=== PATIENT | male | born 2000 | race Caucasian/White ===

== ENCOUNTER → 2018-01-18 09:36 | Outpatient (CLI) | payer MEDICAID, SELFPAY ==
--- NOTE | 2018-01-18 09:39 | US_ITS ---
US abdomen limited History:Nausea and vomiting after eating Ordering Physician:ROXY sTe Patient Age: 17 years Comparison:None Findings: Pancreas:Unremarkable. No obvious mass or abnormal fluid collection. No ductal dilatation Liver:No focal liver lesions demonstrated. Homogeneous echogenicity. No intrahepatic biliary ductal dilatation evident Right Kidney:Unremarkable. Normal size and echogenicity. No hydronephrosis Gallbladder:Stones are present in the gallbladder. No gallbladder wall thickening, pericholecystic fluid, or biliary dilatation is evident. Stones are present in the neck and fundus of the gallbladder Common bile duct is 3 mm. Impression: Cholelithiasis. Otherwise negative
== END ==
PROVIDERS: PCP Emergency Medicine; Visit Provider Physician Assistant
DX: R10.11 Right upper quadrant pain (principal)
CPT/HCPCS: 76705

== ENCOUNTER 2021-02-20 17:12 | Emergency (ER) | payer BC, SELFPAY ==
[2021-02-20 17:15] VITALS: BP 124/76; PULSE 80; RESP 20; TEMP 37; O2SAT 98; BMI 31.0
--- NOTE | 2021-02-20 17:41 | XR_ITS ---
PROCEDURE INFORMATION: Exam: XR Sternum Exam date and time: 02/20/2021 5:41 PM Age: 20 years old Clinical indication: Sternal or substernal pain; Patient HX: Patient feels pain and popping in sternum; No injury TECHNIQUE: Imaging protocol: XR sternum. Views: 2 or more views. Total images: 4 COMPARISON: ABDPELWO CT abdomen pelvis wo con 12/20/2017 5:12 AM FINDINGS: Bones/joints: No gross sternal fractures are identified radiographically. No blastic or lytic lesions. No gross retrosternal abnormalities. Visualized ribs appear intact. Lungs: Granulomatous calcifications in the precarinal distribution. Visualized lung flanagan are clear. Soft tissues: Soft tissues are unremarkable. IMPRESSION: No acute findings.
--- NOTE | 2021-02-20 18:24 | HMH.EDUTC ---
[facility] [place] Disposition Clinical Impression: Chest problem Disposition: Home, Self-Care Condition on Discharge: Good Instructions: Naproxen Additional Instructions: Do not pop your sternum Follow up with your Family Doctor for further evaluation and examination Take Naproxen as prescribed to help with pain and inflammation of sternal bones Return if needed Straight to ER if any life threatening symptoms or if pain returns Prescriptions: Naproxen [Naproxen 500mg tab] 500 mg PO BID PRN #20 tab PRN Reason: Moderate Pain Transmission Status: Received by [facility] Referrals: Natalia Zapien PA [Primary Care Provider] - As needed Time of Disposition: 18:42 Medical Decision Making - Jez Inquiry Pt receiving controlled substance: No Jez was queried for this patient: No Vital Signs: 02/20/21 17:15 02/20/21 18:52 Temperature 98.6 F 98.6 F Temperature Source Oral Pulse Rate 80 Pulse Rate [Left Brachial] 80 Respiratory Rate 20 20 Blood Pressure 124/76 Blood Pressure [Left Arm] 124/76 Blood Pressure Mean [Left Arm] 92 Blood Pressure Source [Left Arm] Automatic Cuff Blood Pressure Position [Left Arm] Sitting 02 Sat by Pulse Oximetry 98 Oxygen Delivery Method Room Air - Radiology Data #1 Image(s): Other (sternum ) Image Reviewed: Yes I have reviewed radiologist's interpretation IMPRESSION: No acute findings. [facility] [place] HPI - General Stated complaint: sore sternum Time Seen by Provider: 02/20/21 18:24 Mode of Arrival: Ambulatory Source of Information: Patient Limitations: No Limitations Description of Symptoms (Recalled from Triage Doc. by RN): PATIENT C/O SORE STERNUM X 6 MONTHS. STATES THAT WHEN HE LEANS BACK HIS STERNUM POPS HEENT Symptoms (Recalled from RN notes): No Resp Symptoms (Recalled from RN notes): No Skin Symptoms (Recalled from RN notes): No MS Symptoms (Recalled from RN notes): Yes Functional Status (Recalled from RN notes): WNL - History of Present Illness Provider Complaint: Patient states that his sternum will pop when he leans back and stretches States that it is not sore or doesnt hurt but feels like he needs to pop it at times due to feeling stiff States that the other night at work it popped loudly and they was concerned and told him he needed to come get it checked out - Related Data Previous Rx's Medication Instructions Recorded Naproxen [Naproxen 500mg tab] 500 mg PO BID PRN #20 tab 02/20/21 Allergies Allergy/AdvReac Type Severity Reaction Status Date / Time Influenza Virus Vaccines Allergy Intermediate Verified 09/22/18 17:10 [INFLUENZA VIRUS VACCINES] egg Allergy Verified 02/20/21 17:43 nut - unspecified Allergy Verified 02/20/21 17:43 - Worker's Comp Is this a Worker's Comp case?: No [facility] History - Hepatitis A Screen Drug use history?: No High risk sexual behaviors?: No History of sexually transmitted infection?: No Currently employed?: No Childcare worker?: No Do you have indoor plumbing?: Yes Do you have electricity?: Yes Attestation statement:: This patient has been screened for Hepatitis A risk factors. I have reviewed the patient's past medical history: Yes Medical History: Reports:: Anxiety Denies:: Cancer, Diabetes Mellitus Type 1, Diabetes Mellitus Type 2, MRSA Other Surgeries: Yes: Other Amputation: No Fractures: No Comment: eye, wisdom teeth - Social History Smoking Status: Current every day smoker Tobacco Type: cigarettes, e-cigarettes # Packs/Day (cigarettes): 1 Alcohol Intake: never Alcohol Intake Frequency:: holidays/special occasions only Substance Use Type: denies use Occupational Status: employed Housing: house Household Members: family - Psychiatric History Pschychiatric History:: Reports:: Anxiety Family Hx:: Unable to obtain ROS Obtained: Yes All systems reviewed & no additional complaints, Yes Systems reviewed as appropriate & no additional complaints - Con
[2021-02-20 18:52] VITALS: BP 124/76; PULSE 80; RESP 20; TEMP 37; O2SAT 98
== END 2021-02-20 18:55 | disposition home or self-care (01) ==
PROVIDERS: Emergency Provider Nurse Practitioner; PCP Physician Assistant
DX: R07.89 Other chest pain (principal); F41.9 Anxiety disorder, unspecified; F17.210 Nicotine dependence, cigarettes, uncomplicated; Z88.7 Allergy status to serum and vaccine
CPT/HCPCS: 71120; 99202; G0463

== ENCOUNTER 2021-07-26 11:25 | Emergency (ER) | payer BC, SELFPAY ==
[2021-07-26 11:48] VITALS: BP 136/83; PULSE 97; RESP 16; TEMP 37.1; O2SAT 98; BMI 31.3
--- NOTE | 2021-07-26 11:48 | XR_ITS ---
FINAL REPORT CLINICAL HISTORY: pain. radial sided wrist pain. pt shielded. FINDINGS: RIGHT WRIST Three views demonstrate no acute fracture or dislocation. The visualized joint spaces are normally aligned. The soft tissues are unremarkable. IMPRESSION: No acute bony abnormality. Reviewed, Interpreted and Dictated by Silviano Krishna III, MD Transcribed by Marcela Zepeda Authenticated by Silviano Krishna III, MD on 07/26/2021 12:46:[address] [facility]
--- NOTE | 2021-07-26 12:05 | HMH.EDUTC ---
[facility] [place] Clinical Impression: Wrist sprain Qualifiers: Encounter type: initial encounter Laterality: right Qualified Code(s): S63.501A - Unspecified sprain of right wrist, initial encounter Disposition: Home, Self-Care Condition on Discharge: Good Instructions: How To Perform RICE (Rest, Ice, Compress, Elevate) Additional Instructions: *RICE, Rest the extremity, Ice 15-20 minutes 3-4 times daily, Compress- wear the jasvir wrap as discussed as much as possible to help reduce swelling and pain, Elevate the extremity when at rest *Jasvir wrap/Velcro wrist splint is for support and help control swelling, use it except in the shower. Be sure that is not to tight but not to loose either *Elevate when resting *Ibuprofen every 6-8 hours as needed for pain an inflammation. If need something more can take Tylenol in between doses of Ibuprofen to help Immediately follow up with your family doctor for new or worsening of symptoms, or no noticeable improvement over the next 3-5 days Call back to the [facility] later today for the Radiology reading of your xray Referrals: Natalia Zapien PA [Primary Care Provider] - As needed Time of Disposition: 12:23 Medical Decision Making - Jez Inquiry Pt receiving controlled substance: No Jez was queried for this patient: No Vital Signs: 07/26/21 11:48 07/26/21 12:40 Temperature 98.7 F 98.7 F Temperature Source Oral Pulse Rate 97 H Pulse Rate [Left] 97 H Respiratory Rate 16 16 Blood Pressure 136/83 Blood Pressure [Right Arm] 136/83 Blood Pressure Mean [Right Arm] 100 02 Sat by Pulse Oximetry 98 - Radiology Data #1 Image(s): Wrist Image Reviewed: Yes I reviewed the patient's radiology image Preliminary Findings: No Fracture Seen [facility] [place] - General Stated complaint: AO 07/21/21 rt wrist injury Time Seen by Provider: 07/26/21 12:05 Mode of Arrival: Ambulatory Source of Information: Patient Limitations: No Limitations Description of Symptoms (Recalled from Triage Doc. by RN): pt was wrestling around with his brother in law on 07/21. when the pt went to hit him his R wrist bent back. pt has had pain ever since. HEENT Symptoms (Recalled from RN notes): No Resp Symptoms (Recalled from RN notes): No Skin Symptoms (Recalled from RN notes): No MS Symptoms (Recalled from RN notes): Yes Functional Status (Recalled from RN notes): wnl - History of Present Illness Provider Complaint: Patient states that he was horse playing with his brother in law on 07/21 and he went to punch him and his wrist bent and he felt a pop States that he has been having pain in his right wrist on and off ever since with certain movements Denies numbness denies loss of feeling - Related Data Previous Rx's Medication Instructions Recorded Naproxen [Naproxen 500mg tab] 500 mg PO BID PRN #20 tab 02/20/21 Allergies Allergy/AdvReac Type Severity Reaction Status Date / Time Influenza Virus Vaccines Allergy Intermediate Verified 09/22/18 17:10 [INFLUENZA VIRUS VACCINES] egg Allergy Verified 02/20/21 17:43 nut - unspecified Allergy Verified 02/20/21 17:43 - Worker's Comp Is this a Worker's Comp case?: No [facility] History - Hepatitis A Screen Drug use history?: No High risk sexual behaviors?: No History of sexually transmitted infection?: No Currently employed?: No Childcare worker?: No Do you have indoor plumbing?: Yes Do you have electricity?: Yes Attestation statement:: This patient has been screened for Hepatitis A risk factors. I have reviewed the patient's past medical history: Yes Medical History: Reports:: Anxiety Denies:: Cancer, Diabetes Mellitus Type 1, Diabetes Mellitus Type 2, MRSA Other Surgeries: Yes: Other Amputation: No Fractures: No Comment: eye, wisdom teeth - Social History Smoking Status: Current every day smoker Tobacco Type: cigarettes, e-cigarettes # Packs/Day (cigarettes): 1 Alcohol Intake: never Alcohol Intake Frequency:: holidays/special
[2021-07-26 12:40] VITALS: BP 136/83; PULSE 97; RESP 16; TEMP 37.1
== END 2021-07-26 12:44 | disposition home or self-care (01) ==
PROVIDERS: Emergency Provider Nurse Practitioner; PCP Physician Assistant
DX: S63.501A Unspecified sprain of right wrist, initial encounter (principal); X50.3XXA Overexertion from repetitive movements, initial encounter; Y92.019 Unspecified place in single-family (private) house as the place of occurrence of the external cause; F41.9 Anxiety disorder, unspecified; F17.210 Nicotine dependence, cigarettes, uncomplicated
CPT/HCPCS: 29125; 73110; 99212; G0463

== ENCOUNTER → 2022-08-06 08:28 | Outpatient (CLI) | payer BC, SELFPAY ==
--- NOTE | 2022-08-06 08:31 | US_ITS ---
FINAL REPORT CLINICAL HISTORY: RUQ pain, history of gallstones COMPARISON: none FINDINGS: Sonographic images of the right upper quadrant were obtained. The pancreas is partially obscured. There is mild fatty infiltration of the liver. There are multiple large gallstones in the gallbladder. There is no evidence of biliary ductal dilatation.The common duct measures 3 mm. Limited images of the right kidney are unremarkable. IMPRESSION: Fatty infiltration of the liver. Cholelithiasis. Reviewed, Interpreted and Dictated by Silviano Krishna III, MD Transcribed by Georgia Akbar Authenticated and [facility]
== END ==
PROVIDERS: PCP Physician Assistant; Visit Provider Nurse Practitioner Family
DX: R10.11 Right upper quadrant pain (principal)
CPT/HCPCS: 76705

== ENCOUNTER → 2022-09-27 17:03 | Outpatient (CLI) | payer BC, SELFPAY ==
[2022-09-27 17:42] LABS: Basophils % 0.3 % (0.1-2.0); Eosinophils # 0.3 K/mm3 (0.0-0.4); Eosinophils % 5.2 % (0.1-12.0); Lymphocytes # 1.5 K/mm3 (0.7-4.5); Lymphocytes % 27.2 % (10-50); Mean Corpuscular HGB Conc 32.6 g/dL (31.8-35.4); Mean Platelet Volume 9.7 fl (7.4-10.4); Monocytes # 0.4 K/mm3 (0.1-1.0); Monocytes % 7.4 % (1.7-9.3); Neutrophils # 3.2 K/mm3 (1.8-7.8); Platelet Count 168 K/mm3 (142-424); Red Blood Count 5.16 M/mm3 (4.60-6.20); Red Cell Distribution Width 13.1 % (11.5-17.5); White Blood Count 5.3 K/mm3 (4.8-10.8)
[2022-09-27 17:44] LABS: Chloride 103 mmol/L (98-107); Potassium 4.5 mmoL/L (3.5-5.1); Sodium 140 mmol/L (136-145)
[2022-09-27 17:46] LABS: Blood Urea Nitrogen 18 mg/dl (9-20); Estimated Glomerular Filt Rate 120 ml/min (>60); GFR (African American) 145 ML/MIN (>60)
[2022-09-27 17:47] LABS: Alanine Aminotransferase 64 U/L (12-78); Albumin Level 4.7 g/dl (3.5-5.0); Albumin/Globulin Ratio 1.3 (1.1-1.8); Alkaline Phosphatase 60 U/L (38-126); Anion Gap 16.5 mEq/L (5-15); Aspartate Amino Transferase 37 U/L (17-59); Bilirubin,Total 0.8 mg/dl (0.2-1.3); Calcium 9.3 mg/dl (8.4-10.2); Carbon Dioxide 25 mmol/L (22.0-30.0); Globulin 3.6 g/dL (1.3-3.2); Glucose 95 mg/dl (74-100); Total Protein,Serum 8.3 g/dl (6.3-8.2)
== END ==
PROVIDERS: PCP Physician Assistant; Visit Provider Surgery
DX: Z01.812 Encounter for preprocedural laboratory examination (principal); K80.20 Calculus of gallbladder without cholecystitis without obstruction
CPT/HCPCS: 80053; 85025

== ENCOUNTER 2022-10-06 10:12 | Day surgery (SDC) | payer BC, SELFPAY ==
[2022-10-06] VITALS (15 sets, daily range): BP systolic 98–155; BP diastolic 55–86; PULSE 65–110; RESP 16–20; TEMP 30.7–43; O2SAT 91–97; BMI 32.3
--- NOTE | 2022-10-06 12:49 | EXP.OP.NOTE ---
Date of procedure: 10/06/22 Pre-op Diagnosis:: Symptomatic gallstones Post-op Diagnosis:: Same Procedure performed:: Laparoscopic cholecystectomy Surgeon:: Silviano Brown MD SUBJECT SCIENTIFIC RESEARCH:: Other Anesthesia: GETA Estimated blood loss (mL): 20 Clinical Note:: Patient is a pleasant 21-year-old.? Patient had been seen by his primary care provider on 07/30/2022 after he had onset of pain in his right upper quadrant and epigastric area that day.? This persisted for about 2 hours.? It was significant but dull and sharp.? He does state that he had a previous diagnosis of gallstones and had a gallbladder attack about a year ago.? He underwent gallbladder ultrasound on 08/06/2022 which revealed fatty infiltration of the liver and multiple large gallstones.? Common bile duct was normal.? Patient actually states that he was diagnosed about 5 years ago with gallstones.? However, his symptoms have been very sporadic and rare. I had actually seen him years ago for symptoms of nausea. He had an ultrasound done in January 2018 which revealed gallstones. I felt that given the patient's findings on ultrasound with several episodes of biliary colic with his young age that cholecystectomy should be considered.? He does wish to proceed with this.? Nature and details of the proposed procedure along with associated risks and expected outcome were explained to him.? Plan for laparoscopic possibly open cholecystectomy. Operative findings:: He had mild fatty infiltration of the liver. He had a distended gallbladder with 2 moderately large gallstones. Operative note:: Patient was taken to the operating room. He was given preoperative intravenous antibiotics. In the operating room he was placed in a supine position. General anesthesia was induced via endotracheal tube. Abdomen was prepped and draped in the standard surgical fashion. Subumbilical skin incision was made and while performing abdominal wall lift Veress needle was inserted. CO2 pneumoperitoneum was achieved to 15 mmHg. 11 mm optical trocar was inserted at the umbilicus. Intraperitoneal contents were visualized. He was positioned in reverse Trendelenburg and left side down. A couple of 5 mm trocars were inserted in the right upper abdomen. 10 mm trocar was inserted in the epigastrium. Gallbladder was identified and grasped retracted anteriorly and superiorly over the dome of the liver. Gallbladder was distended. Infundibulum of the gallbladder was retracted anterior laterally. Blunt dissection was carried out at the neck of the gallbladder bluntly incising the visceral peritoneum. The cystic duct was clearly identified and isolated. It was multiply clipped and sharply divided. Cystic artery was carefully coagulated with LAUREN ultrasonic robotic dajuan and divided. Gallbladder was dissected free from the liver in a retrograde fashion using LAUREN ultrasonic harmonic dajuan. Gallbladder was placed within an Endo Catch retrieval device and attempt was made at removal from the umbilical trocar site. Attempt was made to extend the fascial incision for delivery. The gallbladder within the Endo Catch retrieval bag was placed within another Endo Catch retrieval bag and removed from the umbilical trocar site after some extension of the fascial and skin incision for delivery as there were a couple of moderately large stones in the distended gallbladder. Gallbladder fossa was inspected for hemostasis. Limited irrigation was performed of the perihepatic space. Trocars were then removed as CO2 pneumoperitoneum was evacuated. Fascia at the umbilicus was closed with several interrupted 0 Vicryl sutures. 0 Vicryl suture was placed in the epigastric trocar site in the anterior fascia. Local anesthetic was infiltrated. Skin incisions were closed with 4-0 Monocryl in a subcuticular fashion. Dermabond and dressings were applied. Condition: stable Disposition: PACU Complications:: None immediately apparent
--- NOTE | 2022-10-06 13:12 | EXP.ANES.I ---
[facility] Anesthesia Record Part I Anesthesia Record I Intake, IV Amount: 1,200 Estimated blood loss (mL): 10 Urine output (mL): 0 Blood Products used (#): none Blood Pressure: 98/55 SaO2: 94 Pulse Rate: 110 Respiratory Rate: 20 Temperature: 87.3 F Patient is:: Drowsy and Stable Stable to PACU at:: 13:05
--- NOTE | 2022-10-06 13:50 | SUR.PHASEI ---
1345- detailed report olimpia camposrn in post op. Pt left in stable condition with all dressings cdi and vss
--- NOTE | 2022-10-07 08:22 | P.PNANES_ITS ---
[facility] Anesthesia Record Part II Anesthesia Record Part II Discharge Time: 13:35 Destination: [facility] PACU nurse assessment reviewed?: Yes Patient Condition:: Good Anesthesia Complications:: None Swallowing reflex intact?: Yes Cyanosis?: No Blood Pressure: 133/74 Pulse Rate: 72 Temperature: 97.3 F Mental Status: Alert & Oriented Pain level:: 6 Nausea and/or vomitting:: None Intake, IV Amount: 1,000
[2022-10-07 08:23] VITALS: BP 133/74; PULSE 72; TEMP 36.3
== END 2022-10-06 14:40 | disposition home or self-care (01) ==
PROVIDERS: PCP Physician Assistant; Visit Provider Surgery
PROC: 0FT44ZZ Resection of Gallbladder, Percutaneous Endoscopic Approach (ICD-10-PCS; CPT 47562; principal; 2022-10-06 11:45)
DX: K80.10 Calculus of gallbladder with chronic cholecystitis without obstruction (principal); K82.8 Other specified diseases of gallbladder
CPT/HCPCS: 47562; 96374; J2405; J2710

== ENCOUNTER 2024-04-28 17:37 | Emergency (ER) | payer BC, SELFPAY ==
[2024-04-28 17:45] VITALS: BP 131/91; PULSE 93; RESP 17; TEMP 36.8; O2SAT 99; BMI 34.1
--- NOTE | 2024-04-28 17:54 | ED_ITS ---
Discharge Plan Disposition Patient Disposition: Home, Self-Care Condition: Good Prescriptions Prescriptions: No Action doxycycline hyclate 100 mg capsule 100 mg PO BID Qty: 20 0RF Referrals Follow up/Referrals: Raymond Connors MD [Primary Care Provider] - See instructions Activity Restrictions/Add. Instructions Additional Instructions/Restrictions: Follow up with your Family Doctor as discussed Stop the Doxycycline Follow up with Eye Doctor as soon as possible for eye exam and testing Straight to ER if any life threatening symptoms Clinical Impressions Clinical Impression: Eye problem Print Language Print Language: Kazakh Discharge ED Provider: Chey Ugarte [facility] [place] HPI General Stated complaint: blurry vision,pressure in eyes, headache Mode of Arrival: Ambulatory Source of Information: Patient Limitations: No Limitations Time Seen by Provider: 04/28/24 17:54 Description of Symptoms (Recalled from Triage Doc. by RN): PATIENT C/O PAIN IN EYES AND BLURRY VISION X 2 DAYS. HE STATES HE WAS ADVISED TO BE SEEN FOR POSSIBLE SIDE EFFECT OF PRESCRIBED MEDICATION HEENT Symptoms (Recalled from RN notes): Yes Resp Symptoms (Recalled from RN notes): No Skin Symptoms (Recalled from RN notes): No MS Symptoms (Recalled from RN notes): No Functional Status (Recalled from RN notes): WNL History of Present Illness Provider Complaint: Patient states that his PCP recently prescribed him Doxycycline States he has been taking it and yesterday he started with a mild headache and feeling like he was having pressure behind his eyes and had some blurry vision for a brief second but then the blurry vision cleared and the headache improved States today he has not had any blurry vision or headache but still feels like he has some pressure behind his eyes and he googled the side effects of Doxy and got worried and came in just to get checked before stopping taking the medication Denies any other symptoms Related Data Previous Rx's ?Medication ?Instructions ?Recorded doxycycline hyclate 100 mg capsule 100 mg PO BID #20 caps 04/26/24 Allergies Allergy/AdvReac Type Severity Reaction Status Date / Time Influenza Virus Vaccines Allergy Intermediate Verified 04/26/24 14:37 (INFLUENZA VIRUS VACCINES) peanut Allergy Intermediate Rash Verified 04/26/24 14:37 egg Allergy Verified 04/26/24 14:37 Worker's Comp Is this a Worker's Comp case?: No [facility] Disclaimer: The information contained in this section may have been updated after the patient was seen, as this information can be updated by other users. Medical History (Updated 04/28/24 @ 18:21 by Chey Ugarte APRN) Lymphadenopathy, axillary Anxiety Asthma Gallstones Surgical History History of laparoscopic cholecystectomy History of wisdom tooth extraction Family History Other Family history of brain aneurysm Social History Smoking Status: Current every day smoker tobacco type: cigarettes packs per day: 1 and e-cigarettes alcohol intake: current alcohol intake frequency: holidays/special occasions only substance use type: denies use current occupational status: employed Travel in the last 8 weeks: None household members: family housing: house ROS Obtained: Yes All systems reviewed & no additional complaints except as documented and Yes Systems reviewed as appropriate & no additional complaints except as documented Constitutional Constitutional: Reports system reviewed and no additional complaints, except as documented, Reports as per HPI and Reports headache(s) (a little yesterday in the back of his head that improved) Eyes Eyes: Reports system reviewed and no additional complaints, except as documented, Reports as per HPI, Reports blurry vision (yesterday for a brief moment then it cleared) and Reports other (pressure like feeling behind eyes ) ENT Ears, Nose, Mouth, and Throat: Reports system reviewed and no additional complaints, except as documented, Reports as per HPI and Reports headache(s) (a little yesterday in the back of his head that improved) Cardiovascular Cardiovascular: Reports system reviewed and no additional complaints, except as documented and Reports as per HPI Respiratory Respiratory: Reports system reviewed and no additional complaints, except as documented and Reports as per HPI Gastrointestinal Gastrointestingal: Reports system reviewed and no additional complaints, except as documented and as per HPI Genitourinary Male Genitourinary: Reports system reviewed and no additional complaints, except as documented and Reports as per HPI Neurologic Neurologic: Reports headache(s) (a little yesterday in the back of his head that improved) Physical Exam General General appearance: alert and in no apparent distress Eye Eye exam: Present normal appearance, PERRL and EOMI; Absent discharge, nystagmus, periorbital swelling or periorbital tenderness Respiratory Respiratory exam: Present normal lung sounds bilaterally; Absent respiratory distress or wheezes Cardiovascular Cardiovascular exam: Present regular rate, normal rhythm and normal heart sounds Abdominal Exam Abdominal exam: Present soft and normal bowel sounds; Absent distention or tenderness Neurological Exam Neurological exam: Present alert, oriented X3 and normal gait Medical Decision Making Medical Records Screening: Per USPSTF and CDC recommendations, given the prevalence of disease in our region, it is our hospital?s policy to screen for HIV and viral Hepatitis for all patients aged 18 and over and those with ongoing risk factors. Jez Inquiry Pt receiving controlled substance: No Jez was queried for this patient: No Vital Signs: 04/28/24 17:45 Temperature 98.3 F Temperature Source Oral Pulse Rate [Left Brachial] 93 H Respiratory Rate 17 Blood Pressure [Left Arm] 131/91 H Blood Pressure Mean [Left Arm] 104 Blood Pressure Source [Left Arm] Automatic Cuff Blood Pressure Position [Left Arm] Sitting 02 Sat by Pulse Oximetry 99 Oxygen Delivery Method Room Air Medical Decision Narrative: Patient advised he had called someone and not sure who that told him to get checked possible side effects of medication, spoke with Dr Rivera that was covering call for his PCP and informed him of patient and complaints and patient did not speak with him, Discussed that patient Alert and oriented and patient no distress states not having any blurry vision or headache at this time just feels like he has some pressure behind his eyes discussed with Patient about transfer to the ED for further work up and evaluation and patient declined patient informed not to take any more of the Doxy and follow up with PCP and Eye exam in the am and see if symptoms improve and given strict return precautions to the ED if symptoms worsen and patient agreed
[2024-04-28 18:20] VITALS: BP 131/91; PULSE 93; RESP 17; TEMP 36.8; O2SAT 99
== END 2024-04-28 18:24 | disposition home or self-care (01) ==
PROVIDERS: Emergency Provider Nurse Practitioner; PCP Family Medicine
DX: R51.9 Headache, unspecified (principal); H53.8 Other visual disturbances
CPT/HCPCS: 99213; G0381

== ENCOUNTER 2024-04-29 15:09 | Outpatient (CLI) | payer BC, SELFPAY ==
--- NOTE | 2024-04-29 15:10 | US_ITS ---
FINAL REPORT CLINICAL HISTORY: lymphadenopathy FINDINGS: ULTRASOUND SOFT TISSUES OF THE RIGHT AXILLA TECHNIQUE: Limited sonographic imaging of the soft tissues of the right axilla were obtained. FINDINGS: There are lobular, low-attenuation regions in the right axilla. The largest measures up to 3.1 x 2.4 cm. These are favored to represent enlarged lymph nodes. Smaller lesions measure up to 1.4 cm. No fluid collection is identified. IMPRESSION: Low-attenuation regions in the right axilla measure up to 3.1 x 2.4 cm. These are favored to represent enlarged lymph nodes. Consider chest CT with IV contrast for further evaluation. Reviewed, Interpreted and Dictated by Marcelino Marlow MD Transcribed by Loretta Chaparro Authenticated and [facility]
== END 2024-04-29 23:59 | disposition home or self-care (01) ==
LOC: RAD 15:10
PROVIDERS: PCP Family Medicine; Visit Provider Family Medicine
DX: R59.0 Localized enlarged lymph nodes (principal)
CPT/HCPCS: 76642

== ENCOUNTER 2025-01-28 18:44 | Emergency (ER) | payer BC, SELFPAY ==
[2025-01-28] VITALS (14 sets, daily range): BP systolic 123–179; BP diastolic 68–103; PULSE 81–101; RESP 17–18; TEMP 36.8; O2SAT 96–100; BMI 35.4
--- NOTE | 2025-01-28 19:01 | ED_ITS ---
<Statement entered by Robert Willson DO - 01/28/25 23:29> I was consulted by the RITIKA, and we discussed the complexity of problems being addressed. I approved the treatment and management plan for this patient's care in the emergency department, thus performing a substantive portion of the medical decision making. I independently evaluated this patient and obtained collateral history. Patient tells me that he developed nausea with vomiting and diarrhea today. He states his primary reason for coming here is because with 1 episode of vomiting he had a scant amount of blood present in the vomit. I did not feel that he necessitated any abdominal imaging because he does not have any abdominal tenderness on exam. However, we did decide to proceed with a chest x-ray to evaluate for potential pneumomediastinum/Boerhaave syndrome. This x-ray was personally interpreted by me and demonstrates no free mediastinal air or air in the subcutaneous tissues that would indicate underlying pneumomediastinum. We also work the patient up with hematologic labs. His labs show a transaminitis with an AST of 98 and an ALT of 217. His bilirubin is mildly elevated at 1.4. The patient has a history of cholecystectomy so this is very unlikely to be secondary to gallstones. We added on a serum alcohol level and acetaminophen level which were both less than 10. CK was normal so this is unlikely to be related to muscle breakdown. My suspicion is that this patient is likely experiencing a viral syndrome that is causing a viral transaminitis. I have had a very long discussion with the patient at the bedside about the importance of following up within 1 week to have repeat LFTs performed. He acknowledges understanding of this. We have also given return precautions in the event that he experiences abdominal pain or any other new or worsening symptoms. At this time all questions were answered and all parties were agreeable with the decision to discharge home. Robert Willson DO Discharge Plan Disposition Patient Disposition: Home, Self-Care Prescriptions Prescriptions: No Action sulfamethoxazole-trimethoprim [Bactrim DS] 800-160 mg tablet 1 tab PO BID Qty: 14 0RF Referrals Follow up/Referrals: Raymond Connors MD [Primary Care Provider, Family Practice] - See instructions Activity Restrictions/Add. Instructions Additional Instructions/Restrictions: Today you were evaluated in the emergency department. Your lab workup revealed elevated AST and ALT. As we discussed, please have these labs redrawn in 1 week. Please check your portal ritika for your hepatitis panel results tomorrow. Please call the ED if you have any additional questions. Follow-up with your PCP next week. Return to the ED for any worsening of condition. Clinical Impressions Clinical Impression: Nausea & vomiting Qualifiers: Vomiting type: unspecified Qualified Code(s): R11.2 - Nausea with vomiting, unspecified Instructions Patient Instructions: DI for Acute Abdominal Pain Print Language Print Language: Luxembour[place] Discharge ED Provider: Robert Willson Adult HPI General Chief complaint: Abdominal Pain Stated complaint: vomiting,abdominal pain , runny stool Time Seen by Provider: 01/28/25 18:52 Mode of Arrival: Ambulatory Source of Information: Patient and Spouse Description of Symptoms (Recalled from ER Triage Doc. by RN): giuliano presents to the ED for vomiting blood and diarrhea. patient stated that the blood in his emesis was dark red, and he assumes it blood . patient states that the disrrhea isnt really abnormal for him since they took his gallbladder out. History of Present Illness HPI narrative: patient is a 24-year-old male with no significant PMHx who presents to the ED for complaints of vomiting and diarrhea that occurred this morning at 1000. Patient states his last meal was at 0600, then he went to sleep, woke up with vomiting and diarrhea. Patient states that the last thing he ate was a steak, jalapeno poppers and chicken bites. Related Data Previous Rx's ?Medication ?Instructions ?Recorded sulfamethoxazole 800 1 tab PO BID #14 tabs mg-trimethoprim 160 mg tablet (Bactrim DS) Allergies Allergy/AdvReac Type Severity Reaction Status Date / Time Influenza Virus Vaccines Allergy Intermediate Verified 05/03/24 15:05 (INFLUENZA VIRUS VACCINES) peanut Allergy Intermediate Rash Verified 05/03/24 15:05 egg Allergy Verified 05/03/24 15:05 [facility] Disclaimer: The information contained in this section may have been updated after the patient was seen, as this information can be updated by other users. Medical History Lymphadenopathy, axillary Anxiety Asthma Gallstones Surgical History History of laparoscopic cholecystectomy History of wisdom tooth extraction Family History Other Family history of brain aneurysm Social History Smoking Status: Never smoker alcohol intake: current alcohol intake frequency: holidays/special occasions only substance use type: denies use current occupational status: employed Travel in the last 8 weeks?: None household members: family housing: house Have you lived/traveled outside US in past 30 days?: No Contact w/someone who lives/traveled outside US past 30 days?: No Exposure to someone with infectious disease in past 14 days?: No Do you have a fever (greater than 100.4 F or 38 C)?: No Have you tested positive for COVID-19?: No Exposed to someone with COVID-19 in past 14 days?: No Do you have a sore throat?: No Do you have a cough?: No Do you have any weakness?: No Do you have any diarrhea?: No Are you experiencing any unusual bleeding?: No Do you have any muscle aches/pain?: No Do you have any abdominal pain?: No Are you experiencing loss of taste or smell?: No Other Medical History Have you received the Flu Vaccine for this season: No Have you received the Pneumonia Vaccine: No ROS Obtained: Yes Systems reviewed as appropriate & no additional complaints except as documented Physical Exam General General appearance: alert and in no apparent distress Head Head exam: atraumatic Eye Eye exam: Present PERRL and EOMI Neck Neck exam: Present full ROM Respiratory Respiratory exam: Present normal lung sounds bilaterally Cardiovascular Cardiovascular exam: Present regular rate Extremities Exam Extremities exam: Present full ROM Back Exam Back exam: Present full ROM Neurological Exam Neurological exam: Present alert and oriented X3 Skin Skin exam: Present warm and dry Medical Decision Making Medical Records Screening: Per USPSTF and CDC recommendations, given the prevalence of disease in our region, it is our hospital?s policy to screen for HIV and viral Hepatitis for all patients aged 18 and over and those with ongoing risk factors. Jez Inquiry Pt receiving controlled substance: No Vital Signs: 01/28/25 18:46 01/28/25 19:10 01/28/25 19:11 Temperature 98.2 F Temperature Source Temporal Artery Scan Pulse Rate 99 H 101 H Pulse Rate [Right Radial] 98 H Respiratory Rate 18 Blood Pressure Blood Pressure [Right Arm] 179/103 H Blood Pressure Mean Blood Pressure Mean [Right Arm] 128 Blood Pressure Source [Right Arm] Automatic Cuff Blood Pressure Position [Right Arm] Sitting 02 Sat by Pulse Oximetry 100 97 97 Oxygen Delivery Method Room Air 01/28/25 19:12 01/28/25 19:12 01/28/25 19:15 Temperature Temperature Source Pulse Rate 98 H 94 H Pulse Rate [Right Radial] Respiratory Rate Blood Pressure 144/86 H Blood Pressure [Right Arm] Blood Pressure Mean 105 Blood Pressure Mean [Right Arm] Blood Pressure Source [Right Arm] Blood Pressure Position [Right Arm] 02 Sat by Pulse Oximetry 96 98 Oxygen Delivery Method 01/28/25 19:30 01/28/25 19:30 01/28/25 19:45 Temperature Temperature Source Pulse Rate 97 H 93 H Pulse Rate [Right Radial] Respiratory Rate Blood Pressure 140/85 Blood Pressure [Right Arm] Blood Pressure Mean 113 Blood Pressure Mean [Right Arm] Blood Pressure Source [Right Arm] Blood Pressure Position [Right Arm] 02 Sat by Pulse Oximetry 97 97 Oxygen Delivery Method 01/28/25 20:00 01/28/25 20:00 01/28/25 20:15 Temperature Temperature Source Pulse Rate 87 88 Pulse Rate [Right Radial] Respiratory Rate Blood Pressure 130/80 Blood Pressure [Right Arm] Blood Pressure Mean 96 Blood Pressure Mean [Right Arm] Blood Pressure Source [Right Arm] Blood Pressure Position [Right Arm] 02 Sat by Pulse Oximetry 98 97 Oxygen Delivery Method 01/28/25 20:30 01/28/25 20:30 01/28/25 20:45 Temperature Temperature Source Pulse Rate 82 82 Pulse Rate [Right Radial] Respiratory Rate Blood Pressure 123/68 Blood Pressure [Right Arm] Blood Pressure Mean 86 Blood Pressure Mean [Right Arm] Blood Pressure Source [Right Arm] Blood Pressure Position [Right Arm] 02 Sat by Pulse Oximetry 98 97 Oxygen Delivery Method 01/28/25 20:52 01/28/25 21:01 Temperature Temperature Source Pulse Rate 81 Pulse Rate [Right Radial] Respiratory Rate Blood Pressure 137/81 Blood Pressure [Right Arm] Blood Pressure Mean 93 Blood Pressure Mean [Right Arm] Blood Pressure Source [Right Arm] Blood Pressure Position [Right Arm] 02 Sat by Pulse Oximetry 97 Oxygen Delivery Method Lab Data Lab Results 01/28/25 18:57: WBC 7.4, RBC 5.12, Hgb 15.4, Hct 45.2, MCV 88.3, MCH 30.1, MCHC 34.1, RDW 12.7, Plt Count 212, MPV 11.7 H, Neut % (Auto) 65.0, Lymph % (Auto) 18.6, Saunders % (Auto) 14.1 H, Eos % (Auto) 1.8, Baso % (Auto) 0.4, Neut # (Auto) 4.8, Lymph # (Auto) 1.4, Saunders # (Auto) 1.0, Eos # (Auto) 0.1, Baso # (Auto) 0.0, Sodium 140, Potassium 4.0, Chloride 102, Carbon Dioxide 25, Anion Gap 17.0 H, BUN 17, Creatinine 0.80, Estimated Creat Clear 215, Estimated GFR 117, Est GFR ( Amer) 141, Glucose 110 H, Calcium 9.4, Total Bilirubin 1.4 H, AST 98 H, ALT 217 H, Alkaline Phosphatase 83, Total Creatine Kinase 130, Total Protein 7.8, Albumin 4.8, Globulin 3.0, Albumin/Globulin Ratio 1.6, Acetaminophen < 10 L , Plasma/Serum Alcohol < 10 01/28/25 18:57 01/28/25 18:57 Orders (Tests/Meds): ED MEDICATIONS Discontinued Medications Generic Name Dose Route Start Last Admin Trade Name Freq PRN Reason Stop Dose Admin Lactated Ringer's 1,000 mls @ 999 mls/hr 01/28/25 19:01 01/28/25 20:06 Lactated Ringer's 1000 Ml Bag IV 01/28/25 20:01 Infused .Q1H1M ONE Infusion ORDERS Category Date Time Status CXR --portable [XR chest portable] Stat Exams 01/28/25 19:11 Taken Acetaminophen Stat Lab 01/28/25 18:57 Completed CBC w/Auto Diff [Complete Blood Count Auto Diff] Stat Lab 01/28/25 18:57 Completed CK [Creatine Kinase] Stat Lab 01/28/25 18:57 Completed CMP [Comprehensive Metabolic Panel] Stat Lab 01/28/25 18:57 Completed Ethanol [Ethyl Alcohol] Stat Lab 01/28/25 18:57 Completed Hepatitis Panel Stat Lab 01/28/25 18:57 Received Medical Decision Narrative: In summary, patient is a 24-year-old male with no significant PMHx who presents to the ED for complaints of vomiting and diarrhea that occurred this morning at 1000. Patient states his last meal was at 0600, then he went to sleep, woke up with vomiting and diarrhea. Patient states that the last thing he ate was a steak, jalapeno poppers and chicken bites. He has not been exposed to any GI illness that he is aware of. He states that the last episode of vomiting had a small amount of bright red blood mixed in. He has not had any issues since this morning, no additional blood in stool. He has not taken any medication prior to arrival. History of cholecystectomy. Does not have any additional complaints. Denies fever, chills, headache, visual disturbance, chest pain, shortness of breath, dysuria, constipation, back pain. Differential diagnoses include gastroenteritis, GI bleed, electrolyte abnormality, dehydration, among others. Upon initial evaluation patient is alert, oriented and cooperative. He is stable, afebrile. His abdomen is soft and nontender. Discussed with patient we will obtain labs and administer IV fluids. He denies wanting anything for nausea or pain at this time. CBC unremarkable for any leukocytosis, stable H&H. CMP remarkable for anion gap 17, glucose 110, total bili 1.4, AST 98, ALT 217. Adding on hepatitis panel, updated patient. He has a portal ritika and will check these results tomorrow. Attending reviewed the chest x-ray, no acute changes noted. Discussed with patient to return to the ED for any worsening of condition. We discussed that he will need to follow-up in 1 week to have his AST and ALT rechecked. He was advised to call the ED if he has any questions about his hepatitis panel results tomorrow. Advised to increase fluid intake. He was hemodynamically stable and ambulatory upon discharge without difficulty. Critical Care Critical Care Time Critical Care Time: No
[2025-01-28] MEDS: LACTATED RINGERS 1000ML 1,000 ML 999 ML IV (19:06)
[2025-01-28 19:08] LABS: Hematocrit 45.2 % (42.0-52.0); Hemoglobin 15.4 g/dL (14.1-18.0); Immature Granulocytes % 0.1 %; Mean Corpuscular HGB Conc 34.1 g/dL (31.8-35.4); Mean Corpuscular Hemoglobin 30.1 pg (27.0-31.2); Mean Corpuscular Volume 88.3 fl (80-94); Nucleated Red Blood Cells % 0 %; Platelet Count 212 K/mm3 (142-424); Red Blood Count 5.12 M/mm3 (4.60-6.20); Red Cell Distribution Width-SD 41.4 fL; White Blood Count 7.4 K/mm3 (4.8-10.8)
--- OUTSIDE RECORDS SUMMARY | 2025-01-28 19:10 | XMS_ITS | Clinical Summary ---
Author Organization Healthcare Address [address] [place] [address] Care Team Providers Care Machine Rigger Name Role Phone Natalia Zapien Primary Care Provider [phone] Social History Tobacco Use Types Packs/Day Years Used Date Smoking Tobacco: Every Day Alcohol Use Standard Drinks/Week Comments Yes 0 (1 standard drink = 0.6 oz pur e alcohol) Sex and Gender Information Value Date Recorded Sex Assigned at Not on file Legal Sex Male 7:09 PM EDT Gender Identity Not on file Sexual Orientation Not on file Plan of Treatment Not on file Care Teams Machine Rigger Relationship Specialty Start Date End Date Natalia Zapien PA [address] [place] [address] PCP - General 08/31/20
--- NOTE | 2025-01-28 19:11 | XR_ITS ---
PROCEDURE INFORMATION: Exam: XR Chest Exam date and time: 01/28/2025 7:51 PM Age: 24 years old Clinical indication: Other: Cp SOA TECHNIQUE: Imaging protocol: Radiologic exam of the chest. Views: 1 view. COMPARISON: CR XR STERNUM MIN 2V 02/20/2021 5:45 PM FINDINGS: Lungs: Unremarkable. No consolidation. Pleural spaces: Unremarkable. No pleural effusion. No pneumothorax. Heart/Mediastinum: Unremarkable. No cardiomegaly. Bones/joints: Unremarkable. IMPRESSION: No acute findings.
[2025-01-28 19:20] LABS: Alanine Aminotransferase 217 U/L (12-78); Albumin Level 4.8 g/dl (3.5-5.0); Albumin/Globulin Ratio 1.6 (1.1-1.8); Alkaline Phosphatase 83 U/L (38-126); Anion Gap 17.0 mEq/L (5-15); Aspartate Amino Transferase 98 U/L (17-59); Bilirubin,Total 1.4 mg/dl (0.2-1.3); Blood Urea Nitrogen 17 mg/dl (9-20); Calcium 9.4 mg/dl (8.4-10.2); Carbon Dioxide 25 mmol/L (22.0-30.0); Chloride 102 mmol/L (98-107); Creatinine Clearance Estimated 215 mL/min (50-200); Creatinine,Serum 0.80 mg/dl (0.66-1.25); Estimated Glomerular Filt Rate 117 ml/min (>60); GFR (African American) 141 ML/MIN (>60); Globulin 3.0 g/dL (1.3-3.2); Glucose 110 mg/dl (74-100); Potassium 4.0 mmoL/L (3.5-5.1); Sodium 140 mmol/L (136-145); Total Protein,Serum 7.8 g/dl (6.3-8.2)
[2025-01-28 20:19] LABS: Creatine Kinase 130 U/L (55-170)
[2025-01-28 20:20] LABS: Acetaminophen < 10 ug/ml (10-30)
== END 2025-01-28 21:09 | disposition home or self-care (01) ==
PROVIDERS: Nurse Practitioner; Emergency Provider Student in an Organized Health Care Education/Training Program; PCP Family Medicine
DX: R11.2 Nausea with vomiting, unspecified (principal)
CPT/HCPCS: 71045; 80053; 80074; 80320; 80329; 82550; 85025; 96360; 99284; 99285; J7120

== ENCOUNTER 2025-02-02 11:35 | Outpatient (CLI) | payer BC, SELFPAY ==
[2025-02-02 17:49] LABS: Alanine Aminotransferase 135 U/L (12-78); Albumin Level 4.6 g/dl (3.5-5.0); Albumin/Globulin Ratio 1.6 (1.1-1.8); Alkaline Phosphatase 77 U/L (38-126); Anion Gap 17.5 mEq/L (5-15); Aspartate Amino Transferase 42 U/L (17-59); Bilirubin,Total 0.5 mg/dl (0.2-1.3); Blood Urea Nitrogen 22 mg/dl (9-20); Calcium 9.6 mg/dl (8.4-10.2); Carbon Dioxide 27 mmol/L (22.0-30.0); Chloride 100 mmol/L (98-107); Creatinine,Serum 0.90 mg/dl (0.66-1.25); Estimated Glomerular Filt Rate 102 ml/min (>60); GFR (African American) 123 ML/MIN (>60); Globulin 2.8 g/dL (1.3-3.2); Glucose 101 mg/dl (74-100); Potassium 4.5 mmoL/L (3.5-5.1); Sodium 140 mmol/L (136-145); Total Protein,Serum 7.4 g/dl (6.3-8.2)
--- OUTSIDE RECORDS SUMMARY | 2025-02-06 11:38 | XMS_ITS | Clinical Summary ---
Author Organization Healthcare Address [address] [place] [address] Care Team Providers Care Test Lead Name Role Phone Natalia Zapien Primary Care Provider [phone] Social History Tobacco Use Types Packs/Day Years [...] of Treatment Not on file Care Teams Test Lead Relationship Specialty Start Date End Date Natalia Zapien PA [address] [place] [address] PCP - General 08/31/20
== END 2025-02-02 23:59 ==
LOC: LAB.DROPOF 02-06 11:36
PROVIDERS: PCP Family Medicine; Visit Provider Family Medicine
DX: R79.89 Other specified abnormal findings of blood chemistry (principal)
CPT/HCPCS: 80053

== ENCOUNTER 2025-03-10 08:36 | Outpatient (CLI) | payer BC, SELFPAY ==
[2025-03-10 16:35] LABS: Alanine Aminotransferase 107 U/L (12-78); Albumin Level 5.2 g/dl (3.5-5.0); Albumin/Globulin Ratio 1.6 (1.1-1.8); Alkaline Phosphatase 67 U/L (38-126); Anion Gap 13.4 mEq/L (5-15); Aspartate Amino Transferase 39 U/L (17-59); Bilirubin,Total 0.4 mg/dl (0.2-1.3); Blood Urea Nitrogen 23 mg/dl (9-20); Calcium 10.0 mg/dl (8.4-10.2); Carbon Dioxide 26 mmol/L (22.0-30.0); Chloride 101 mmol/L (98-107); Creatinine,Serum 0.80 mg/dl (0.66-1.25); Estimated Glomerular Filt Rate 117 ml/min (>60); GFR (African American) 141 ML/MIN (>60); Globulin 3.2 g/dL (1.3-3.2); Glucose 98 mg/dl (74-100); Potassium 4.4 mmoL/L (3.5-5.1); Sodium 136 mmol/L (136-145); Total Protein,Serum 8.4 g/dl (6.3-8.2)
--- OUTSIDE RECORDS SUMMARY | 2025-03-13 11:27 | XMS_ITS | Clinical Summary ---
Author Organization Healthcare Address [address] [place] [address] Care Team Providers Care Fund Manager Name Role Phone Natalia Zapien Primary Care Provider [phone] Social History Tobacco Use Types Packs/Day Years [...] of Treatment Not on file Care Teams Fund Manager Relationship Specialty Start Date End Date Natalia Zapien PA [address] [place] [address] PCP - General 08/31/20
== END 2025-03-10 23:59 ==
LOC: LAB.DROPOF 03-13 10:59
PROVIDERS: PCP Family Medicine; Visit Provider Family Medicine
DX: R74.8 Abnormal levels of other serum enzymes (principal)
CPT/HCPCS: 80053